=== PATIENT | female | born 1980 | race Caucasian/White ===

== ENCOUNTER 2017-09-08 23:48 | Emergency (ER) | payer BC, MEDICAID ==
[~2017-09-08] VITALS: Ht 167.6 cm; Wt 55.8 kg
[~2017-09-08 23:48] MED LIST: SYNTHROID
[2017-09-09] MEDS ORDERED: SULFACETAMIDE SOD 10% OPHT DR 15 ML BOTTLE ONE (00:29)
[2017-09-09] MEDS ORDERED: SULFACETAMIDE SOD 10% OPHT DR 15 ML BOTTLE OP ONE (00:30)
[2017-09-09] MEDS ORDERED: HYDROCODONE/APAP 5-325MG TABLET PO ONE (00:30)
[2017-09-09] MEDS ORDERED: HYDROCODONE/APAP 5-325MG TABLET ONE (00:40)
--- NOTE | 2017-09-09 00:45 | NUR ---
Patient discharged to home in stable conditon. Written and verbal after care instructions given. Patient verbalizes understanding of instructions. Patient reported having a tolerable level of eye pain upon discharge. Patient able to ambulate unassisted with steady gait. Patient left with all personal belongings.
[2017-09-09 00:50] VITALS: BP 98/62
== END 2017-09-09 00:45 | disposition home or self-care (01) ==
LOC: ER 23:48
DX: B30.9 Viral conjunctivitis, unspecified (principal); J02.8 Acute pharyngitis due to other specified organisms; B97.89 Other viral agents as the cause of diseases classified elsewhere; E03.9 Hypothyroidism, unspecified; Z88.1 Allergy status to other antibiotic agents; Z88.8 Allergy status to other drugs, medicaments and biological substances; Z79.899 Other long term (current) drug therapy
CPT/HCPCS: A4663